=== PATIENT | female | born 1990 | race Caucasian/White ===

== ENCOUNTER 2017-03-02 18:08 | Emergency (ER) ==
[2017-03-02 18:16] VITALS: BP 135/89; TEMP 98.7; BMI 32.8
--- NOTE | 2017-03-02 18:23 | ED.PDOC ---
General ED Provider: Dr. ALIDA DAWSON Chief Complaint: Wrist Pain/Injury Stated Complaint: RIGHT HAND AND WRIST INJURY Time Seen by Physician: 18:11 Information Source: Patient, Family Exam Limitations: No limitations Nursing and Triage Documentation Reviewed and Agree: Yes Musculoskeletal Complaint Exam - Hand/Wrist Complaint/Exam Location of Pain: Reports: Right, Hand, Wrist Mechanism of Injury: Reports: Trauma (BLUNT) Onset/Duration: TODAY Symptoms Are: Still present Onset of Pain: Reports: Hours Initial Severity: Mild Current Severity: Mild Location: Reports: Discrete Character: Reports: Aching Alleviating: Reports: Rest Aggravating: Reports: None Associated Signs and Symptoms: Denies: Swelling, Redness, Bruising, Fever, Weakness, Numbness, Tingling Dominant Hand: Right Related Surgical History: Reports: None Hand/Wrist Findings: Absent: Swelling, Ecchymosis, Abnormal contour Tenderness: Present: Ulna, Metacarpal Differential Diagnoses: Closed Fracture Review of Systems - Review Of Systems Constitutional: Reports: No symptoms Eyes: Reports: No symptoms Ears, Nose, Mouth, Throat: Reports: No symptoms Respiratory: Reports: No symptoms Cardiac: Reports: No symptoms GI: Reports: No symptoms : Reports: No symptoms Musculoskeletal: Reports: Joint pain Skin: Reports: No symptoms Neurological: Reports: No symptoms Endocrine: Reports: No symptoms Hematologic/Lymphatic: Reports: No symptoms All Other Systems: Reviewed and Negative Past Medical History - Past Medical History Previously Healthy: Yes Endocrine: Reports: None Cardiovascular: Reports: None Respiratory: Reports: None Hematological: Reports: None Gastrointestinal: Reports: None Genitourinary: Reports: None Neuro/Psych: Reports: None Musculoskeletal: Reports: None Cancer: Reports: None Last Menstrual Period: 03/04/17 - Surgical History General Surgical History: Reports: None - Family History Family History: Reports: None - Social History Smoking Status: Current every day smoker, Heavy tobacco smoker Hx Substance Use: No Alcohol Screening: None - Immunizations Tetanus Shot up to Date: Yes Physical Exam - Physical Exam Appearance: Well-appearing, No pain distress, Well-nourished Eyes: BRENDA, EOMI, Conjunctiva clear ENT: Ears normal, Nose normal, Oropharynx normal Respiratory: Airway patent, Breath sounds clear, Breath sounds equal, Respirations nonlabored Cardiovascular: RRR, Pulses normal, No rub, No murmur GI/: Soft, Nontender, No masses, Bowel sounds normal, No Organomegaly Musculoskeletal: Normal strength, ROM intact, No edema, No calf tenderness Skin: Warm, Dry, Normal color Neurological: Sensation intact, Motor intact, Reflexes intact, Cranial nerves intact, Alert, Oriented Psychiatric: Affect appropriate, Mood appropriate Critical Care Note - Critical Care Note Total Time (mins): 0 Course - Course Orders, Labs, Meds: Orders Category Date Time Status HAND, RIGHT 3 VIEWS Stat RADS 03/02/17 18:17 Ordered WRIST, RIGHT 3 VIEWS Stat RADS 03/02/17 18:17 Ordered Vital Signs: Temp Pulse Resp BP Pulse Ox 03/02/17 18:09 98.7 F 81 18 135/89 98 Departure - Departure Time of Disposition: 19:00 Disposition: HOME SELF-CARE Discharge Problem: Pain in wrist, Injury of wrist Sprain of hand, right Qualifiers: Encounter type: initial encounter Qualified Code(s): S63.91XA - Sprain of unspecified part of right wrist and hand, initial encounter Instructions: Hand Sprain (ED) Condition: Good Pt referred to PMD for follow-up: Yes Additional Instructions: Please call your Family Physician as soon as possible to schedule a follow-up appointment. Allergies/Adverse Reactions: Allergies No Known Allergies Allergy (Unverified 03/02/17 18:14) Home Medications: Ambulatory Orders 1 [No Reported Medications] 03/02/17 Disposition Discussed With: Patient
--- NOTE | 2017-03-03 07:50 | DI ---
EXAM: Right wrist three-view HISTORY: , COMPARISON: None FINDINGS: The bones are normal. The joints are normal. No focal soft tissue abnormality. IMPERSSION: Normal examination.
--- NOTE | 2017-03-03 07:51 | DI ---
EXAM: Right hand three-view HISTORY: Trauma COMPARISON: None FINDINGS: The bones are normal. The joints are normal. No focal soft tissue abnormality. IMPERSSION: Normal examination.
== END 2017-03-02 18:45 | disposition home or self-care (01) ==
LOC: ED 18:08
DX: S63.91XA Sprain of unspecified part of right wrist and hand, initial encounter (principal); W22.8XXA Striking against or struck by other objects, initial encounter; F17.210 Nicotine dependence, cigarettes, uncomplicated
CPT/HCPCS: 99283